=== PATIENT | female | born 1940 | race Caucasian/White ===

== ENCOUNTER 2019-01-18 19:56 | Emergency (ER) | payer MEDICARE, OTHER ==
--- NOTE | 2019-01-18 20:01 | EDM.PDOC ---
ED HPI GENERAL MEDICAL PROBLEM - General Stated Complaint: PAIN IN BACK OF RIGHT KNEE, POSS SPRAIN Time Seen by Provider: 01/18/19 19:58 Source of Information: Reports: Patient History Limitations: Reports: No Limitations - History of Present Illness INITIAL COMMENTS - FREE TEXT/NARRATIVE: HISTORY AND PHYSICAL: History of present illness: Patient is a 78-year-old female who presents to the emergency room with complaints of right posterior knee pain. She states earlier this evening she was dumping her garbage, "It was really heavy and I twisted funny", when she felt pain to the back of her knee. She denies any injury, trauma or falls. She attributes this to a muscular strain or "sprained knee". 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 She denies any calf pain, numbness or tingling of the distal extremity or weakness. Patient denies any fever, chills, headache, change in vision, syncope or near syncope. Denies any chest pain, back pain, shortness of breath or cough. Denies any GI or symptoms. Review of systems: As per history of present illness and below otherwise all systems reviewed and negative. Past medical history: As per history of present illness and as reviewed below otherwise noncontributory. Surgical history: As per history of present illness and as reviewed below otherwise noncontributory. Social history: See social history for further information Family history: As per history of present illness and as reviewed below otherwise noncontributory. Physical exam: General: Well-developed and well-nourished 78-year-old female. Alert and oriented. Nontoxic appearing and in no acute distress. HEENT: Atraumatic, normocephalic, pupils equal and reactive bilaterally, negative for conjunctival pallor or scleral icterus, mucous membranes moist, trachea midline. No drooling or trismus noted. No meningeal signs. No hot potato voice noted. Lungs: Clear to auscultation, breath sounds equal bilaterally, chest nontender. Heart: S1S2, regular rate and rhythm without overt murmur Abdomen: Soft, nondistended, nontender. Skin: Intact, warm, dry. No lesions or rashes noted. Extremities: Atraumatic, moves all extremities per self without difficulty or deficits, negative for cords or calf pain. No bony tenderness with palpation. Neurovascular unremarkable. Neuro: Awake, alert, oriented. Cranial nerves II through XII unremarkable. Cerebellum unremarkable. Motor and sensory unremarkable throughout. Exam nonfocal. Notes: Patient has no calf tenderness. Skin is intact warm and dry. Does not appear cellulitic and does not sound like a DVT. She is agreeable to an x-ray. X-ray shows no acute findings. Supportive care measures were reviewed and discussed. Voices understanding and is agreeable to plan of care. Denies any further questions or concerns at this time. Diagnostics: Knee x-ray Therapeutics: None Prescription: Diclofenac Impression: Right Knee Pain Plan: 1. Rest, ice, elevate the affected extremity. 2. Tylenol as needed for pain management. Diclofenac has been prescribed for pain. This medication is an anti-inflammatory pain medications so do not take any additional NSAID's or ibuprofen while taking this medication. Please take it with food and take as directed. 3. Follow up with the Orthopedic provider as we discussed. Return to the ED as needed and as discussed. Definitive disposition and diagnosis as appropriate pending reevaluation and review of above. Onset: Today Right knee Pain Score (Numeric/FACES): 10 - Related Data Allergies Allergy/AdvReac Type Severity Reaction Status Date / Time No Known Allergies Allergy Verified 01/18/19 20:01 Home Meds: Home Meds . [Unable to Verify Home Med List] 08/07/18 [History] Past Medical History HEENT History: Reports: Impaired Vision Cardiovascular History: Reports: Hypertension Other Cardiovascular History: patient reports 2012 heart surgery pt unsure what for Respiratory History: Reports: None Gastrointestinal History: Reports: None Genitourinary History: Reports: None [employer] SUPER[employer]OR History: Reports: None Musculoskeletal History: Reports: Arthritis Neurological History: Reports: None Psychiatric History: Reports: None Endocrine/Metabolic History: Reports: None Hematologic History: Reports: None Oncologic (Cancer) History: Reports: None Dermatologic History: Reports: None - Infectious Disease History Infectious Disease History: Reports: Chicken Pox, Measles, Mumps Social & Family History - Family History Family Medical History: Noncontributory Review of Systems - Review of Systems Review Of Systems: ROS reveals no pertinent complaints other than HPI. ED EXAM, GENERAL - Physical Exam Exam: See Below (See dictation) Course - Vital Signs Last Recorded V/S: Last Vital Signs Temp 97.1 F 01/18/19 20:03 Pulse 73 01/18/19 20:03 Resp 20 01/18/19 20:03 BP 174/61 H 01/18/19 20:03 Pulse Ox 95 01/18/19 20:03 - Orders/Labs/Meds Orders: Active Orders 24 hr Category Date Time Status Knee 3V Rt [CR] Stat Exams 01/18/19 20:01 Taken Meds: Medications Discontinued Medications Generic Name Dose Route Start Last Admin Trade Name Bessie PRN Reason Stop Dose Admin Diclofenac Sodium 50 mg 01/18/19 20:21 Voltaren PO 01/18/19 20:22 ONETIME ONE Departure - Departure Time of Disposition: 20:11 Disposition: Home, Self-Care 01 Clinical Impression: Right knee pain Qualifiers: Chronicity: acute Qualified Code(s): M25.561 - Pain in right knee - Discharge Information Instructions: Knee Pain, Adult, [id number] Referrals: PCP,None [Primary Care Provider] - Additional Instructions: The following information is given to patients seen in the emergency department who are being discharged to home. This information is to outline your options for follow-up care. We provide all patients seen in our emergency department with a follow-up referral. The need for follow-up, as well as the timing and circumstances, are variable depending upon the specifics of your emergency department visit. If you don't have a primary care physician on staff, we will provide you with a referral. We always advise you to contact your personal physician following an emergency department visit to inform them of the circumstance of the visit and for follow-up with them and/or the need for any referrals to a consulting specialist. The emergency department will also refer you to a specialist when appropriate. This referral assures that you have the opportunity for follow-up care with a specialist. All of these measure are taken in an effort to provide you with optimal care, which includes your follow-up. Under all circumstances we always encourage you to contact your private physician who remains a resource for coordinating your care. When calling for follow-up care, please make the office aware that this follow-up is from your recent emergency room visit. If for any reason you are refused follow-up, please contact the [facility] Emergency Department at and asked to speak to the emergency department charge nurse. [facility] [address] [place] [id number] [facility] [address] [place] [address], [address] [place] [address] 1. Rest, ice, elevate the affected extremity. 2. Tylenol as needed for pain management. Diclofenac has been prescribed for pain. This medication is an anti-inflammatory pain medications so do not take any additional NSAID's or ibuprofen while taking this medication. Please take it with food and take as directed. 3. Follow up with the Orthopedic provider or Primary Care Provider as we discussed. Return to the ED as needed and as discussed. - My Orders Last 24 Hours: My Active Orders 01/18/19 20:01 Knee 3V Rt [CR] Stat - Assessment/Plan Last 24 Hours: My Active Orders 01/18/19 20:01 Knee 3V Rt [CR] Stat
[2019-01-18] MEDS ORDERED: Diclofenac Sodium 50 MG Tab.EC PO ONE (20:21)
--- NOTE | 2019-01-18 20:38 | CR ---
Indication: Pain. Technique: Three views of the right knee were obtained. Comparison: None Findings: Moderate severe narrowing of the medial compartment is identified. No significant joint effusion is identified. Narrowing of the patellofemoral articulation is identified. No acute fracture or subluxation is identified. Impression: Degenerative change. Dictated by Elaine Cruz MD @ Jan 18 2019 8:35PM Signed by Dr. Elaine Cruz @ Jan 18 2019 8:35PM
== END 2019-01-18 20:37 | disposition home or self-care (01) ==
LOC: MW.ED 19:56
DX: M25.561 Pain in right knee (principal)
CPT/HCPCS: 73562-26-RT; 73562-RT; 99283-25

== ENCOUNTER 2020-07-15 02:21 | Emergency (ER) | payer MEDICARE, OTHER ==
[2020-07-15] MEDS ORDERED: Sodium Chloride 0.9% 2.5 ML Syringe FLUSH PRN (02:23)
[2020-07-15] MEDS ORDERED: Sodium Chloride 0.9% 10 ML Syringe FLUSH PRN (02:23)
--- NOTE | 2020-07-15 02:25 | EDM.PDOC ---
ED HPI GENERAL MEDICAL PROBLEM - General Stated Complaint: ABDOMINAL PAIN Time Seen by Provider: 07/15/20 02:22 Source of Information: Reports: Patient History Limitations: Reports: No Limitations - History of Present Illness INITIAL COMMENTS - FREE TEXT/NARRATIVE: 80-year-old female presents with abdominal pain. Her abdominal pain is localized to the right side of her abdomen, started today at noon, described as cramping sensation, constant, nonradiating, no alleviating or exacerbating factors. She admits to dysuria. She denies fever, chills, nausea, vomiting, diarrhea, bloody stool, chest pain, shortness of breath. Her last BM was today. ROS: A 10-point review of systems, other than pertinent positives and negatives as stated per HPI, is otherwise negative Past medical history: No additional pertinent history Past Surgical history: No additional pertinent history Social history: No additional pertinent history Family history: No additional pertinent history PHYSICAL EXAM General: AOx4, GCS = 15, No distress HEENT: dry mucous membrane Neck: supple, no meningismus, no Kernig or Brudzinski Cardiac: S1S2 RRR Respiratory: CTAB, no crackles or rales, no wheezing Abdomen: Soft, mildly tender on the right side diffusely, no rebound or guarding, nondistended, no pulsatile mass. Back: nontender Musculoskeletal: NVI distally, no deformity Neuro: No focal deficits Abdomen Pain Score (Numeric/FACES): 8 - Related Data Allergies Allergy/AdvReac Type Severity Reaction Status Date / Time No Known Allergies Allergy Verified 07/15/20 03:12 Home Meds: Home Meds . [Unable to Verify Home Med List] 08/07/18 [History] Past Medical History HEENT History: Reports: Impaired Vision Cardiovascular History: Reports: Hypertension Other Cardiovascular History: patient reports 2012 heart surgery pt unsure what for Respiratory History: Reports: None Gastrointestinal History: Reports: None Genitourinary History: Reports: None DOG WALKER History: Reports: None Musculoskeletal History: Reports: Arthritis Neurological History: Reports: None Psychiatric History: Reports: None Endocrine/Metabolic History: Reports: None Hematologic History: Reports: None Oncologic (Cancer) History: Reports: None Dermatologic History: Reports: None - Infectious Disease History Infectious Disease History: Reports: Chicken Pox, Measles, Mumps Social & Family History - Family History Family Medical History: No Pertinent Family History - Caffeine Use Caffeine Use: Reports: Coffee ED ROS GENERAL - Review of Systems Review Of Systems: See Below (see dictation) ED EXAM, GENERAL - Physical Exam Exam: See Below (see dictation) #1 Interpretation EKG Interpretation Comments: Heart rate = 67 bpm, normal sinus rhythm, normal QRS interval, no STEMI. EKG and rhythm strip interpreted by me at 0346 Course - Vital Signs Last Recorded V/S: Last Vital Signs Temp 98.4 F 07/15/20 03:00 Pulse 67 07/15/20 05:47 Resp 14 07/15/20 05:47 BP 151/60 H 07/15/20 05:47 Pulse Ox 96 07/15/20 05:47 - Orders/Labs/Meds Orders: Active Orders 24 hr Category Date Time Status Cardiac Monitoring [RC] . DIRECTED Care 07/15/20 02:23 Active EKG Documentation Completion [RC] STAT Care 07/15/20 02:23 Active Pulse Oximetry [RC] ASDIRECTED Care 07/15/20 02:23 Active CORONAVIRUS COVID-19 PCR PHL Stat Lab 07/15/20 03:31 Ordered UA W/CHRISTIAN RFLX IF INDICATED [URIN] Stat Lab 07/15/20 06:00 Received Sodium Chloride 0.9% [Normal Saline] 1,000 ml Med 07/15/20 04:00 Active IV .BOLUS Sodium Chloride 0.9% [Saline Flush] Med 07/15/20 02:23 Active 10 ml FLUSH ASDIRECTED PRN Sodium Chloride 0.9% [Saline Flush] Med 07/15/20 02:23 Active 2.5 ml FLUSH ASDIRECTED PRN Saline Lock Insert [OM.PC] Stat Oth 07/15/20 02:23 Ordered Medication Orders Sodium Chloride (Normal Saline) 1,000 mls @ 999 mls/hr IV .BOLUS LOVE Last Admin: 07/15/20 04:21 Dose: 999 mls/hr Documented by: JAZMÍN Sodium Chloride (Saline Flush) 10 ml FLUSH ASDIRECTED PRN PRN Reason: Keep Vein Open Sodium Chloride (Saline Flush) 2.5 ml FLUSH ASDIRECTED PRN PRN Reason: Keep Vein Open Labs: Laboratory Tests 07/15/20 07/15/20 07/15/20 Range/Units 03:14 03:14 03:14 WBC 9.25 (4.0-11.0) K/uL RBC 3.67 L (4.30-5.90) M/uL Hgb 10.9 L (12.0-16.0) g/dL Hct 34.7 L (36.0-46.0) % MCV 94.6 (80.0-98.0) fL MCH 29.7 (27.0-32.0) pg MCHC 31.4 (31.0-37.0) g/dL RDW Std Deviation 50.5 (28.0-62.0) fl RDW Coeff of Marquis 15 (11.0-15.0) % Plt Count 182 (150-400) K/uL MPV 10.60 (7.40-12.00) fL Neut % (Auto) 78.5 (48.0-80.0) % Lymph % (Auto) 11.4 L (16.0-40.0) % [place] % (Auto) 9.2 (0.0-15.0) % Eos % (Auto) 0.8 (0.0-7.0) % Baso % (Auto) 0.1 (0.0-1.5) % Neut # (Auto) 7.3 H (1.4-5.7) K/uL Lymph # (Auto) 1.1 (0.6-2.4) K/uL [place] # (Auto) 0.9 H (0.0-0.8) K/uL Eos # (Auto) 0.1 (0.0-0.7) K/uL Baso # (Auto) 0.0 (0.0-0.1) K/uL Nucleated RBC % 0.0 /100WBC Nucleated RBCs # 0 K/uL INR 1.02 Lactate 0.8 (0.20-2.00) mmol/L Sodium (136-145) mmol/L Potassium (3.5-5.1) mmol/L Chloride (98-107) mmol/L Carbon Dioxide (21.0-32.0) mmol/L BUN (7.0-18.0) mg/dL Creatinine (0.6-1.0) mg/dL Est Cr Clr Drug Dosing Estimated GFR (MDRD) ml/min Glucose (74-106) mg/dL Calcium (8.5-10.1) mg/dL Magnesium (1.8-2.4) mg/dL Total Bilirubin (0.2-1.0) mg/dL AST (15-37) IU/L ALT (14-63) IU/L Alkaline Phosphatase (46-116) U/L Troponin I (0.000-0.056) ng/mL Total Protein (6.4-8.2) g/dL Albumin (3.4-5.0) g/dL Globulin (2.6-4.0) g/dL Albumin/Globulin Ratio (0.9-1.6) Lipase (73-393) U/L SARS CoV-2 RNA Rapid LETHA (NEGATIVE) 07/15/20 07/15/20 Range/Units 03:14 03:20 WBC (4.0-11.0) K/uL RBC (4.30-5.90) M/uL Hgb (12.0-16.0) g/dL Hct (36.0-46.0) % MCV (80.0-98.0) fL MCH (27.0-32.0) pg MCHC (31.0-37.0) g/dL RDW Std Deviation (28.0-62.0) fl RDW Coeff of Marquis (11.0-15.0) % Plt Count (150-400) K/uL MPV (7.40-12.00) fL Neut % (Auto) (48.0-80.0) % Lymph % (Auto) (16.0-40.0) % [place] % (Auto) (0.0-15.0) % Eos % (Auto) (0.0-7.0) % Baso % (Auto) (0.0-1.5) % Neut # (Auto) (1.4-5.7) K/uL Lymph # (Auto) (0.6-2.4) K/uL [place] # (Auto) (0.0-0.8) K/uL Eos # (Auto) (0.0-0.7) K/uL Baso # (Auto) (0.0-0.1) K/uL Nucleated RBC % /100WBC Nucleated RBCs # K/uL INR Lactate (0.20-2.00) mmol/L Sodium 133 L (136-145) mmol/L Potassium 4.5 (3.5-5.1) mmol/L Chloride 101 (98-107) mmol/L Carbon Dioxide 22.7 (21.0-32.0) mmol/L BUN 31 H (7.0-18.0) mg/dL Creatinine 1.7 H (0.6-1.0) mg/dL Est Cr Clr Drug Dosing TNP Estimated GFR (MDRD) 28.8 ml/min Glucose 119 H (74-106) mg/dL Calcium 9.0 (8.5-10.1) mg/dL Magnesium 1.8 (1.8-2.4) mg/dL Total Bilirubin 0.4 (0.2-1.0) mg/dL AST 18 (15-37) IU/L ALT 16 (14-63) IU/L Alkaline Phosphatase 70 (46-116) U/L Troponin I < 0.050 (0.000-0.056) ng/mL Total Protein 7.7 (6.4-8.2) g/dL Albumin 3.6 (3.4-5.0) g/dL Globulin 4.1 H (2.6-4.0) g/dL Albumin/Globulin Ratio 0.9 (0.9-1.6) Lipase 119 (73-393) U/L SARS CoV-2 RNA Rapid LETHA NEGATIVE (NEGATIVE) Meds: Medications Generic Name Dose Route Start Last Admin Trade Name Freq PRN Reason Stop Dose Admin Sodium Chloride 1,000 mls @ 999 mls/hr 07/15/20 04:00 07/15/20 04:21 Normal Saline IV 999 mls/hr .BOLUS LOVE Administration Sodium Chloride 10 ml 07/15/20 02:23 Saline Flush FLUSH ASDIRECTED PRN Keep Vein Open Sodium Chloride 2.5 ml 07/15/20 02:23 Saline Flush FLUSH ASDIRECTED PRN Keep Vein Open Discontinued Medications Generic Name Dose Route Start Last Admin Trade Name Bessie PRN Reason Stop Dose Admin Dicyclomine HCl 10 mg 07/15/20 02:35 07/15/20 03:19 Bentyl PO 07/15/20 02:36 10 mg ONETIME ONE Administration - Re-Assessments/Exams Free Text/Narrative Re-Assessment/Exam: 07/15/20 0623 She is currently stable for discharge. I performed a repeat exam and did not appreciate new abnormal findings. Patient exhibits normal vital signs and has a normal gait on road test. I advised the patient to return to the ER for reevaluation if symptoms worsened, including fever, worsening pain, or any other worrisome symptoms. I instructed the patient to follow up with their PCP within 2-3 days. MEDICAL DECISION MAKING: I reviewed the patients past medical records, lab and radiographic findings. I discussed the case with the patient. My differential diagnosis included: Cholecystitis, cholelithiasis, pancreatitis. Patient's creatinine = 1.7, BUN = 31, she was hydrated with IV fluids. There were no prior comparisons. Patient has no fever or leukocytosis or transaminitis, her CT however demonstrated dilated gallbladder with gallstones with possible wall thickening,. This was followed up with ultrasound, which did not demonstrate acute cholecystitis. Departure - Departure Time of Disposition: 06:39 Disposition: Home, Self-Care 01 Condition: Good Clinical Impression: Renal insufficiency, Abdominal pain, Gallstone - Discharge Information *PRESCRIPTION DRUG MONITORING PROGRAM REVIEWED*: Not Applicable *COPY OF PRESCRIPTION DRUG MONITORING REPORT IN PATIENT AKRIN: Not Applicable Instructions: Abdominal Pain, Adult, [id number], Cholelithiasis Referrals: Jason Miller MD [Primary Care Provider] - 3 Days Forms: ED Department Discharge Additional Instructions: The need for follow-up, as well as the timing and circumstances, are variable depending upon the specifics of your emergency department visit. If you don't have a primary care physician on staff, we will provide you with a referral. We always advise you to contact your personal physician following an emergency department visit to inform them of the circumstance of the visit and for follow-up with them and/or the need for any referrals to a consulting specialist. The emergency department will also refer you to a specialist when appropriate. This referral assures that you have the opportunity for follow-up care with a specialist. All of these measure are taken in an effort to provide you with optimal care, which includes your follow-up. Under all circumstances we always encourage you to contact your private physi michelle who remains a resource for coordinating your care. When calling for follow- up care, please make the office aware that this follow-up is from your recent emergency room visit. If for any reason you are refused follow-up, please contact the [facility] Emergency Department at and asked to speak to the emergency department charge nurse. If you do not have a primary care doctor, please follow up with the clinics below within 3-5 days. [facility] [address] [place] [address] [id number] [address] [address] Sepsis Event Note (ED) - Focused Exam Vital Signs: Vital Signs Temp Pulse Resp BP Pulse Ox 07/15/20 05:47 67 14 151/60 H 96 07/15/20 04:28 68 14 160/53 H 96 07/15/20 03:57 67 14 166/69 H 96 07/15/20 03:00 98.4 F 71 18 154/61 H 98 - My Orders Last 24 Hours: My Active Orders 07/15/20 02:23 Cardiac Monitoring [RC] . DIRECTED EKG Documentation Completion [RC] STAT Pulse Oximetry [RC] ASDIRECTED Sodium Chloride 0.9% [Saline Flush] 10 ml FLUSH ASDIRECTED PRN Sodium Chloride 0.9% [Saline Flush] 2.5 ml FLUSH ASDIRECTED PRN Saline Lock Insert [OM.PC] Stat 07/15/20 03:31 CORONAVIRUS COVID-19 PCR PHL Stat 07/15/20 04:00 Sodium Chloride 0.9% [Normal Saline] 1,000 ml IV .BOLUS 07/15/20 06:00 UA W/CHRISTIAN RFLX IF INDICATED [URIN] Stat - Assessment/Plan Last 24 Hours: My Active Orders 07/15/20 02:23 Cardiac Monitoring [RC] . DIRECTED EKG Documentation Completion [RC] STAT Pulse Oximetry [RC] ASDIRECTED Sodium Chloride 0.9% [Saline Flush] 10 ml FLUSH ASDIRECTED PRN Sodium Chloride 0.9% [Saline Flush] 2.5 ml FLUSH ASDIRECTED PRN Saline Lock Insert [OM.PC] Stat 07/15/20 03:31 CORONAVIRUS COVID-19 PCR PHL Stat 07/15/20 04:00 Sodium Chloride 0.9% [Normal Saline] 1,000 ml IV .BOLUS 07/15/20 06:00 UA W/CHRISTIAN RFLX IF INDICATED [URIN] Stat
[2020-07-15] MEDS ORDERED: Dicyclomine 10 MG Cap PO ONE (02:35)
[2020-07-15 03:46] LABS: BLOOD UREA NITROGEN,BUN 31 mg/dL (7.0-18.0); CARBON DIOXIDE,CO2 22.7 mmol/L (21.0-32.0); CHLORIDE,CL 101 mmol/L (98-107); GLUCOSE RANDOM 119 mg/dL (74-106); LIPASE 119 U/L (73-393); POTASSIUM,K 4.5 mmol/L (3.5-5.1); SODIUM,NA 133 mmol/L (136-145)
--- NOTE | 2020-07-15 03:46 | CT ---
INDICATION: Abdominal pain TECHNIQUE: CT abdomen and pelvis without contrast. COMPARISON: None FINDINGS: Lower chest: Unremarkable. Liver: Unremarkable. Spleen: Unremarkable. Pancreas: Unremarkable. Gallbladder and bile ducts: The gallbladder is distended. Subcentimeter gallstones. Possible gallbladder wall thickening no pericholecystic fluid. Kidneys: Unremarkable. No kidney or ureteral stones and no hydronephrosis. Adrenal glands: Unremarkable. GI tract: Ventral hernia superior to the symphysis pubis containing normal loops of small bowel.. Appendix is normal. Vascular structures: Unremarkable. Lymph nodes: Unremarkable. Miscellaneous: Unremarkable. No free air or significant free fluid. Pelvic Organs: Unremarkable. Bones: Unremarkable for age. IMPRESSION: Distended gallbladder with subcentimeter gallstones. Possible gallbladder wall thickening. Normal common bile duct. Correlate with right upper quadrant pain. Please note that all CT scans at this facility use dose modulation, iterative reconstruction, and/or weight-based dosing when appropriate to reduce radiation dose to as low as reasonably achievable. Dictated by Duane Gastelum MD @ Jul 15 2020 3:40AM Signed by Dr. Duane Gastelum @ Jul 15 2020 3:44AM
[2020-07-15] MEDS ORDERED: Sodium Chloride 0.9% 1,000 ML IV SCH (04:00)
--- NOTE | 2020-07-15 06:04 | US ---
INDICATION: Right upper quadrant pain. TECHNIQUE: Ultrasound abdomen limited. Sonographic images of the right upper quadrant were obtained using nieto-scale and color Doppler images. COMPARISON: CT study dated 07/15/2020. FINDINGS: Liver: Mild fatty infiltration of the liver suspected. No masses. No intrahepatic biliary dilatation. Gallbladder: Borderline distended gallbladder, measuring 10.2 cm in length. Biliary sludge with shadowing gallstones are noted. Negative sonographic Ragsdale sign. Gallbladder wall thickness within normal limits, measuring 2 mm. No pericholecystic fluid. Common bile duct: 5 mm. Pancreas: Unremarkable. Right kidney: Length 8.2 cm. Normal echotexture and cortex. No masses, stones, or hydronephrosis. Vasculature: Abdominal aorta and IVC not evaluated. IMPRESSION: 1. Cholelithiasis and biliary sludge with no sonographic imaging evidence of acute cholecystitis or abnormal biliary dilatation. 2. Mild fatty infiltration of liver. Dictated by Stephen Hopkins MD @ Jul 15 2020 5:58AM Signed by Dr. Stephen Hopkins @ Jul 15 2020 6:04AM
[2020-07-15 07:15] LABS: BLOOD UREA NITROGEN,BUN 29 mg/dL (7.0-18.0); CARBON DIOXIDE,CO2 21.3 mmol/L (21.0-32.0); CHLORIDE,CL 103 mmol/L (98-107); GLUCOSE RANDOM 119 mg/dL (74-106); POTASSIUM,K 4.7 mmol/L (3.5-5.1); SODIUM,NA 136 mmol/L (136-145)
== END 2020-07-15 06:55 | disposition home or self-care (01) ==
LOC: MW.ED 02:21
DX: K80.20 Calculus of gallbladder without cholecystitis without obstruction (principal); N28.9 Disorder of kidney and ureter, unspecified; I10 Essential (primary) hypertension; Z20.828 Contact with and (suspected) exposure to other viral communicable diseases
CPT/HCPCS: 36415; 74176; 76705; 80048; 80053; 81001; 83605; 83690; 83735; 84484; 85025; 85610; 93005; 99284; A9270; J7040; U0002; 93010

== ENCOUNTER 2023-10-19 10:46 | Emergency (ER) | payer MEDICARE, OTHER ==
[2023-10-19] MEDS: Sodium Chloride 0.9% 1,000 ML IV STA ×2 (11:19→14:52)
[2023-10-19 12:06] LABS: BASE EXCESS VENOUS -5.1 (-2.0-3.0); BICARBONATE,VENOUS 22 mEq/L (23-28); PCO2 VENOUS 46 mmHG (41-51); PH,VENOUS 7.28 (7.31-7.41); PO2 VENOUS < 30 mmHG
[2023-10-19 12:08] LABS: CORONAVIRUS COVID-19 NAA NEGATIVE (NEGATIVE); INFLUENZA A NAA NEGATIVE (NEGATIVE); INFLUENZA B NAA NEGATIVE (NEGATIVE); RESPIRATORY SYNCYTIAL VIR NAA NEGATIVE (NEGATIVE)
[2023-10-19 12:09] LABS: BASOPHILS ABSOLUTE AUTO 0.01 K/uL (0.00-0.20); BASOPHILS PERCENT AUTO 0.1 % (0.0-1.0); EOSINOPHILS ABSOLUTE AUTO 0.03 K/uL (0.00-0.45); EOSINOPHILS PERCENT AUTO 0.3 % (0.0-6.0); HEMATOCRIT 36.2 % (37.0-47.0); HEMOGLOBIN 11.9 g/dL (12.0-16.0); IMMATURE GRAN ABSOLUTE AUTO 0.07 K/uL (0.00-0.05); IMMATURE GRAN PERCENT AUTO 0.8 % (0.0-0.4); LYMPHOCYTES ABSOLUTE AUTO 1.58 K/uL (1.00-4.80); LYMPHOCYTES PERCENT AUTO 17.9 % (24.0-44.0); MEAN CORPUSCULAR HEMOGLOBIN 30.1 pg (28.0-32.0); MEAN CORPUSCULAR HGB CONC 32.9 g/dL (32.0-36.0); MEAN CORPUSCULAR VOLUME 91.6 fL (83.0-99.0); MEAN PLATELET VOLUME 11.3 fL (9.4-12.3); MONOCYTES ABSOLUTE AUTO 0.57 K/uL (0.00-0.80); MONOCYTES PERCENT AUTO 6.5 % (0.0-8.0); NEUTROPHILS ABSOLUTE AUTO 6.56 K/uL (1.80-7.70); NEUTROPHILS PERCENT AUTO 74.4 % (41.0-71.0); PLATELET COUNT,PLT 129 K/uL (150-400); RED BLOOD CELL COUNT 3.95 M/uL (4.10-5.30); WHITE BLOOD CELL COUNT,WBC 8.82 K/uL (3.9-11.3)
[2023-10-19 12:36] LABS: LACTIC ACID 2.8 mmol/L (0.4-2.0)
[2023-10-19 12:37] LABS: D-DIMER QUANTITATIVE 14.1 mg/L FEU (0.00-0.50); INR 1.15 (0.86-1.11); PTT,PARTIAL THROMBOPLSTIN TIME 27.6 SEC (23.9-30.7)
[2023-10-19 12:43] LABS: A/G RATIO 0.6 (0.9-1.6); ALBUMIN 2.8 g/dL (3.4-5.0); BILIRUBIN TOTAL 0.5 mg/dL (0.2-1.0); CALCIUM 9.1 mg/dL (8.5-10.1); CARBON DIOXIDE,CO2 21.5 mmol/L (21.0-32.0); CREATININE 1.7 mg/dL (0.6-1.0); EST CRCL DRUG DOSING (CG) 19.48 mL/min; MAGNESIUM 1.7 mg/dL (1.8-2.4); POTASSIUM,K 4.8 mmol/L (3.5-5.1); PROTEIN TOTAL,TP 7.8 g/dL (6.4-8.2); TSH ULTRASENSITIVE 10.2 uIU/mL (0.36-3.74)
[2023-10-19 13:21] LABS: T4 FREE 1.13 ng/dL (0.76-1.46)
[2023-10-19] MEDS: Iopamidol 755 MG/ML 500 ML Multipack Bottle IVPUSH STA (15:28)
[2023-10-19 16:03] LABS: APPEARANCE,URINE SLT CLOUDY; BILIRUBIN,URINE NEGATIVE (NEGATIVE); COLOR,URINE OTHER; GLUCOSE,URINE NEGATIVE (NEGATIVE); KETONES,URINE NEGATIVE (NEGATIVE); LEUKOCYTE ESTERASE,URINE NEGATIVE (NEGATIVE); NITRITE,URINE NEGATIVE (NEGATIVE); OCCULT BLOOD,URINE TRACE-INTACT (NEGATIVE); PH,URINE 5.5 (5.0-8.0); PROTEIN,URINE TRACE mg/dL (NEGATIVE); UROBILINOGEN,URINE 0.2 EU/dL (<2.0)
[2023-10-19 16:21] LABS: BACTERIA,URINE FEW (NEGATIVE); MUCUS,URINE LIGHT (NONE-MOD); SQUAMOUS EPITHELIAL CELLS,UR FEW; WBC,URINE 0-1 (0-5/HPF)
[2023-10-19] MEDS: Heparin Sodium/0.45% NaCl 500 ML IV SCH (16:23)
[2023-10-19] MEDS: Heparin Sodium 5,000 Units/ML Vial IVPUSH ONE (16:23)
== END 2023-10-19 19:30 ==
LOC: MW.ED 10:46
DX: I26.99 Other pulmonary embolism without acute cor pulmonale (principal); I10 Essential (primary) hypertension
CPT/HCPCS: 0241U; 36415; 51702; 70450; 71045; 71275; 74177; 80053; 81001; 82803; 83605; 83690; 83735; 83880; 84439; 84443; 84484; 85025; 85379; 85610; 85730; 87040; 93005; 96361; 96365; 96366; 99285; J1644; J7030; Q9967; 93010; 99291; 99292